=== PATIENT | male | born 1940 | race Caucasian/White ===

== ENCOUNTER 2019-05-30 06:32 | Outpatient (RCR) | payer MEDICARE, BC, SELFPAY ==
[2019-03-14 08:01] LABS: Basophils Percent Auto 0.7 % (0.2-1.2); Eosinophils Absolute Auto 0.1 K/mm3 (0-0.3); Eosinophils Percent Auto 1.2 % (0-4.4); Hematocrit 31.3 % (42.0-52.0); Hemoglobin 9.6 g/dL (14.0-18.0); Immature Granulocyte Absolute 0.06 K/mm3 (0.00-0.031); Lymphocytes Absolute Auto 0.78 K/mm3 (0.9-3.2); Mean Corpuscular HGB Conc 30.7 g/dl (32-36); Mean Corpuscular Hemoglobin 26.1 pg (26-34); Mean Corpuscular Volume 85.1 fl (80-100); Mean Platelet Volume 10.9 fl (7.4-10.4); Monocytes Absolute Auto 0.7 K/mm3 (0.1-0.6); Monocytes Percent Auto 11.9 % (2.6-8.5); Neutrophils Absolute Auto 4.3 K/mm3 (1.3-6.7); Neutrophils Percent Auto 72.2 % (45.5-73.1); Platelet Count Result 189 k/mm3 (150-375); Red Blood Count 3.68 M/mm3 (4.6-6.20); Red Cell Distribution Width 16.6 % (11.5-14.5)
[2019-03-14 08:10] LABS: INR 2.4; Prothrombin Time 25.7 Seconds (11.1-14.7)
[2019-03-14 08:12] LABS: Alanine Aminotransferase 13 U/L (4-50); Albumin Level 3.7 g/dL (3.5-5.1); Alkaline Phosphatase 67 U/L (38-126); Aspartate Amino Transferase 14 U/L (17-59); Bilirubin,Total 0.3 mg/dL (0.2-1.3); Blood Urea Nitrogen 34 mg/dL (9-20); Calcium 9.2 mg/dL (8.4-10.2); Carbon Dioxide 25 mmol/L (22-30); Chloride 103 mmol/L (98-107); Cholesterol 105 mg/dL (0-200); Estimated Glomerular Filt Rate 26; Glucose 154 mg/dL (75-110); HDL Direct 37 mg/dL; Phosphorus 3.7 mg/dL (2.5-4.5); Potassium 4.4 mmol/L (3.4-5.0); Sodium 138 mmol/L (137-145); Triglycerides 113 mg/dL (<150)
[2019-03-14 08:23] LABS: Hemoglobin A1C 7.5 % (<5.7)
[2019-03-14 08:24] LABS: LDL Cholesterol Direct 51 mg/dL
[2019-03-16 09:50] LABS: BK Virus Specimen Source Whole Blood
[2019-03-16 21:36] LABS: Tacrolimus Prograf 3.2 mcg/L
[2019-03-20 08:09] LABS: Basophils Percent Auto 0.6 % (0.2-1.2); Eosinophils Absolute Auto 0.1 K/mm3 (0-0.3); Eosinophils Percent Auto 1.4 % (0-4.4); Immature Granulocyte Absolute 0.06 K/mm3 (0.00-0.031); Immature Granulocyte Percent A 0.9 % (0-0.5); Lymphocytes Absolute Auto 0.89 K/mm3 (0.9-3.2); Lymphocytes Percent Auto 13.5 % (18.3-44.2); Mean Corpuscular HGB Conc 29.4 g/dl (32-36); Mean Corpuscular Hemoglobin 25.4 pg (26-34); Mean Corpuscular Volume 86.3 fl (80-100); Mean Platelet Volume 10.1 fl (7.4-10.4); Monocytes Absolute Auto 0.9 K/mm3 (0.1-0.6); Monocytes Percent Auto 13.2 % (2.6-8.5); Neutrophils Absolute Auto 4.6 K/mm3 (1.3-6.7); Neutrophils Percent Auto 70.4 % (45.5-73.1); Platelet Count Result 193 k/mm3 (150-375); Red Blood Count 3.94 M/mm3 (4.6-6.20); Red Cell Distribution Width 16.9 % (11.5-14.5); White Blood Count 6.6 K/mm3 (4.5-10.0)
[2019-03-20 08:16] LABS: Hemoglobin A1C 7.3 % (<5.7); INR 2.5; Prothrombin Time 26.7 Seconds (11.1-14.7)
[2019-03-20 08:25] LABS: Alanine Aminotransferase 15 U/L (4-50); Albumin Level 3.8 g/dL (3.5-5.1); Alkaline Phosphatase 69 U/L (38-126); Aspartate Amino Transferase 15 U/L (17-59); Bilirubin,Total 0.2 mg/dL (0.2-1.3); Blood Urea Nitrogen 18 mg/dL (9-20); Calcium 9.3 mg/dL (8.4-10.2); Carbon Dioxide 24 mmol/L (22-30); Chloride 105 mmol/L (98-107); Cholesterol 111 mg/dL (0-200); Estimated Glomerular Filt Rate 45; Glucose 151 mg/dL (75-110); HDL Direct 37 mg/dL; Potassium 4.6 mmol/L (3.4-5.0); Sodium 138 mmol/L (137-145); Triglycerides 150 mg/dL (<150)
[2019-03-20 08:30] LABS: LDL Cholesterol Direct 51 mg/dL
[2019-03-20 09:57] LABS: Hypochromasia 1+ (NORMAL); Platelet Estimate Adequate (Adequate)
[2019-03-21 23:59] LABS: BK Virus Specimen Source Whole Blood
[2019-03-22 17:58] LABS: Tacrolimus Prograf 2.3 mcg/L
[2019-03-23 04:04] LABS: Anti Streptolysin O Screen <50 IU/mL (<200)
[2019-03-27 08:27] LABS: Basophils Percent Auto 0.5 % (0.2-1.2); Eosinophils Absolute Auto 0.1 K/mm3 (0-0.3); Eosinophils Percent Auto 1.3 % (0-4.4); Hematocrit 34.8 % (42.0-52.0); Hemoglobin 10.3 g/dL (14.0-18.0); Immature Granulocyte Absolute 0.05 K/mm3 (0.00-0.031); Immature Granulocyte Percent A 0.8 % (0-0.5); Lymphocytes Absolute Auto 0.48 K/mm3 (0.9-3.2); Mean Corpuscular HGB Conc 29.6 g/dl (32-36); Mean Corpuscular Volume 84.5 fl (80-100); Mean Platelet Volume 10.5 fl (7.4-10.4); Monocytes Absolute Auto 0.8 K/mm3 (0.1-0.6); Monocytes Percent Auto 13.8 % (2.6-8.5); Neutrophils Absolute Auto 4.6 K/mm3 (1.3-6.7); Neutrophils Percent Auto 75.6 % (45.5-73.1); Platelet Count Result 179 k/mm3 (150-375); Red Blood Count 4.12 M/mm3 (4.6-6.20); Red Cell Distribution Width 17.2 % (11.5-14.5)
[2019-03-27 08:36] LABS: Hemoglobin A1C 7.3 % (<5.7)
[2019-03-27 08:41] LABS: INR 2.8; Prothrombin Time 29.1 Seconds (11.1-14.7)
[2019-03-27 08:42] LABS: Alanine Aminotransferase 14 U/L (4-50); Albumin Level 3.8 g/dL (3.5-5.1); Alkaline Phosphatase 67 U/L (38-126); Aspartate Amino Transferase 16 U/L (17-59); Bilirubin,Total 0.5 mg/dL (0.2-1.3); Blood Urea Nitrogen 19 mg/dL (9-20); Calcium 9.4 mg/dL (8.4-10.2); Carbon Dioxide 23 mmol/L (22-30); Chloride 105 mmol/L (98-107); Cholesterol 124 mg/dL (0-200); Estimated Glomerular Filt Rate 45; Glucose 166 mg/dL (75-110); HDL Direct 41 mg/dL; Phosphorus 3.6 mg/dL (2.5-4.5); Potassium 4.6 mmol/L (3.4-5.0); Sodium 139 mmol/L (137-145); Triglycerides 159 mg/dL (<150)
[2019-03-27 08:52] LABS: Anisocytosis 1+ (NORMAL); Hypochromasia 1+ (NORMAL); Platelet Estimate Adequate (Adequate)
[2019-03-27 08:53] LABS: LDL Cholesterol Direct 58 mg/dL
[2019-03-28 23:32] LABS: Tacrolimus Prograf 4.6 mcg/L
[2019-04-10 08:12] LABS: INR 4.6; Prothrombin Time 42.9 Seconds (11.1-14.7)
[2019-04-14 07:44] LABS: Basophils Percent Auto 0.3 % (0.2-1.2); Eosinophils Percent Auto 0.7 % (0-4.4); Hematocrit 31.5 % (42.0-52.0); Hemoglobin 9.2 g/dL (14.0-18.0); Immature Granulocyte Absolute 0.04 K/mm3 (0.00-0.031); Immature Granulocyte Percent A 0.7 % (0-0.5); Lymphocytes Absolute Auto 0.44 K/mm3 (0.9-3.2); Lymphocytes Percent Auto 7.5 % (18.3-44.2); Mean Corpuscular HGB Conc 29.2 g/dl (32-36); Mean Corpuscular Hemoglobin 24.7 pg (26-34); Mean Corpuscular Volume 84.7 fl (80-100); Mean Platelet Volume 9.8 fl (7.4-10.4); Monocytes Absolute Auto 0.9 K/mm3 (0.1-0.6); Monocytes Percent Auto 15.6 % (2.6-8.5); Neutrophils Absolute Auto 4.4 K/mm3 (1.3-6.7); Neutrophils Percent Auto 75.2 % (45.5-73.1); Platelet Count Result 208 k/mm3 (150-375); Red Blood Count 3.72 M/mm3 (4.6-6.20); Red Cell Distribution Width 17.7 % (11.5-14.5); White Blood Count 5.9 K/mm3 (4.5-10.0)
[2019-04-14 07:55] LABS: Albumin Level 3.8 g/dL (3.5-5.1); Blood Urea Nitrogen 28 mg/dL (9-20); Calcium 9.4 mg/dL (8.4-10.2); Carbon Dioxide 26 mmol/L (22-30); Chloride 105 mmol/L (98-107); Estimated Glomerular Filt Rate 29; Glucose 144 mg/dL (75-110); Phosphorus 3.8 mg/dL (2.5-4.5); Potassium 5.3 mmol/L (3.4-5.0); Sodium 140 mmol/L (137-145)
[2019-04-14 07:56] LABS: INR 2.4
[2019-04-14 10:12] LABS: Anisocytosis 1+ (NORMAL); Hypochromasia 1+ (NORMAL); Platelet Estimate Adequate (Adequate)
[2019-04-17 16:49] LABS: Tacrolimus Prograf 4.5 mcg/L
[2019-04-17 18:29] LABS: BK Virus DNA, Qual PCR Not Detected (Not Detected); BK Virus Specimen Source Plasma
[2019-05-01 08:26] LABS: INR 2.2; Prothrombin Time 23.8 Seconds (11.1-14.7)
[2019-05-01 09:02] LABS: Hemoglobin A1C 6.9 % (<5.7)
[2019-05-03 13:50] LABS: BK Virus DNA, Qual PCR Not Detected (Not Detected); BK Virus Specimen Source Plasma
[2019-05-16 08:35] LABS: INR 2.1; Prothrombin Time 23.4 Seconds (11.1-14.7)
[2019-05-16 08:45] LABS: Alanine Aminotransferase 13 U/L (4-50); Alkaline Phosphatase 76 U/L (38-126); Aspartate Amino Transferase 16 U/L (17-59); Bilirubin,Total 0.3 mg/dL (0.2-1.3); Blood Urea Nitrogen 23 mg/dL (9-20); Calcium 9.6 mg/dL (8.4-10.2); Carbon Dioxide 23 mmol/L (22-30); Chloride 103 mmol/L (98-107); Cholesterol 126 mg/dL (0-200); Estimated Glomerular Filt Rate 45; Glucose 169 mg/dL (75-110); HDL Direct 42 mg/dL; Phosphorus 3.5 mg/dL (2.5-4.5); Potassium 5.1 mmol/L (3.4-5.0); Sodium 137 mmol/L (137-145); Triglycerides 146 mg/dL (<150)
[2019-05-16 08:57] LABS: LDL Cholesterol Direct 63 mg/dL
[2019-05-17 17:33] LABS: Tacrolimus Prograf 4.8 mcg/L
[2019-05-18 12:07] LABS: BK Virus Specimen Source Plasma
[2019-05-29 07:32] LABS: Basophils Percent Auto 0.3 % (0.2-1.2); Eosinophils Absolute Auto 0.1 K/mm3 (0-0.3); Eosinophils Percent Auto 1.9 % (0-4.4); Hematocrit 37.3 % (42.0-52.0); Hemoglobin 11.3 g/dL (14.0-18.0); Immature Granulocyte Absolute 0.03 K/mm3 (0.00-0.031); Immature Granulocyte Percent A 0.5 % (0-0.5); Mean Corpuscular HGB Conc 30.3 g/dl (32-36); Mean Corpuscular Hemoglobin 25.2 pg (26-34); Mean Corpuscular Volume 83.3 fl (80-100); Mean Platelet Volume 10.3 fl (7.4-10.4); Monocytes Absolute Auto 0.7 K/mm3 (0.1-0.6); Monocytes Percent Auto 11.4 % (2.6-8.5); Neutrophils Absolute Auto 3.9 K/mm3 (1.3-6.7); Neutrophils Percent Auto 66.9 % (45.5-73.1); Platelet Count Result 172 k/mm3 (150-375); Red Blood Count 4.48 M/mm3 (4.6-6.20); Red Cell Distribution Width 17.7 % (11.5-14.5); White Blood Count 5.8 K/mm3 (4.5-10.0)
[2019-05-29 07:45] LABS: INR 2.4; Prothrombin Time 25.7 Seconds (11.1-14.7)
[2019-05-30 07:39] LABS: Albumin Level 4.2 g/dL (3.5-5.1); Blood Urea Nitrogen 29 mg/dL (9-20); Calcium 9.9 mg/dL (8.4-10.2); Carbon Dioxide 24 mmol/L (22-30); Chloride 101 mmol/L (98-107); Estimated Glomerular Filt Rate 37; Glucose 159 mg/dL (75-110); Potassium 4.8 mmol/L (3.4-5.0); Sodium 136 mmol/L (137-145)
[2019-06-01 08:48] LABS: BK Virus Specimen Source Plasma
[2019-06-01 19:10] LABS: Tacrolimus Prograf 3.7 mcg/L
== END 2019-06-12 23:59 | disposition home or self-care (01) ==
LOC: ANHLAB 06:32
PROVIDERS: PCP Family Medicine
DX: Z51.81 Encounter for therapeutic drug level monitoring (principal); E10.65 Type 1 diabetes mellitus with hyperglycemia; E78.2 Mixed hyperlipidemia; Z94.0 Kidney transplant status; Z79.01 Long term (current) use of anticoagulants; Z79.899 Other long term (current) drug therapy
CPT/HCPCS: 36415; 80053; 80061; 80069; 80197; 83036; 84100; 85025; 85610; 86060; 86886; 87798; 87799